=== PATIENT | female | born 1960 | race Caucasian/White ===

== ENCOUNTER 2017-11-22 12:56 | Emergency (ER) | payer OTHER, MEDICAID ==
[~2017-11-22] VITALS: Ht 167.6 cm; Wt 77.1 kg
--- NOTE | ~2017-11-22 | EKG ---
[address] [place] [address] ELECTROCARDIOGRAM REPORT Name: BRIDGET SHERMAN Room #: DEP [facility]ENTERPr[facility] [id number] Admission: 11/22/17 Attend Phys: Discharge: 11/22/17 Date of : 58 Report #: [id number] THIS REPORT FOR: //name// [facility] ED Test Date: 2017-11-22 Test Time: 13:57:05 Pat Name: BRIDGET SHERMAN Department: Room: Gender: F Law Clerk: MOOK : 1960 Requested By: Dillon Carrillo Order Number: [id number] MD: Ty Barrera Measurements Intervals [place] Rate: 68 P: 48 LA: 156 QRS: -18 QRSD: 89 T: 31 QT: 397 QTc: 423 Interpretive Statements Sinus rhythm Borderline left axis deviation Abnormal R-wave progression, early transition Probable anterolateral infarct, old No previous ECG available for comparison Electronically Signed On 11-22-2017 17:05:13 CDT by Ty Barrera [email or web address] <ELECTRONICALLY SIGNED> By: Ty Barrera MD 11/22/17 1705 D: 09/1356 135 Ty Barrera MD /THUY
[~2017-11-22 12:56] MED LIST: DIPHENHIST50 MG PO; MEDROLDOSEPACK PO; NAPROSYN500 MG PO; TIZANIDINE HCL4 MG PO
[2017-11-22] MEDS ORDERED: NORCO 10-325 T1 EACH PO (13:40)
[2017-11-22] MEDS ORDERED: CALCIUM 600 +1 EAC1 PO (13:41)
[2017-11-22] MEDS ORDERED: MS CONTIN 30 MG30 MG PO (13:42)
[2017-11-22 14:11] LABS: HEMATOCRIT 38.8 % (37.0-47.0); HEMOGLOBIN 12.8 gm/dL (12.0-15.0); MCH 26.9 pg (26.0-34.0); MCHC 32.9 g/dL (28.0-37.0); MCV 81.6 fL (80.0-100.0); PLATELET COUNT 351 thou/uL (150-400); RBC 4.75 mil/uL (4.20-5.00); RDW 19.8 % (10.5-14.5); WBC 9.3 thou/uL (4.0-11.0)
[2017-11-22 14:19] LABS: ANION GAP 9 mmol/L (7-16); BUN 12 mg/dL (7-18); CALCIUM 10.4 mg/dL (8.5-10.1); CHLORIDE 105 mmol/L (98-107); CO2 26 mmol/L (21-32); CREATININE 0.8 mg/dL (0.6-1.0); GLUCOSE 91 mg/dL (74-106); POTASSIUM 3.7 mmol/L (3.5-5.1); SODIUM 140 mmol/L (136-145)
[2017-11-22 14:27] LABS: TROPONIN-I <0.06 ng/mL (<0.06)
[2017-11-22 14:42] LABS: ABSOLUTE NEUTROPHILS 4.8 thou/uL (1.4-8.2); PLATELET ESTIMATE NORMAL
[2017-11-22 15:00] LABS: URINE BILIRUBIN NEGATIVE (Negative); URINE BLOOD TRACE (Negative); URINE CLARITY CLEAR; URINE COLOR YELLOW; URINE GLUCOSE-RANDOM* NEGATIVE (Negative); URINE KETONES NEGATIVE (Negative); URINE LEUKOCYTES-REFLEX NEGATIVE (Negative); URINE NITRITE-REFLEX NEGATIVE (Negative); URINE PROTEIN (DIPSTICK) NEGATIVE (Negative); URINE SPECIFIC GRAVITY <= 1.005 (1.005-1.035); URINE UROBILINOGEN 0.2 E.U./dl (0.2-1.0)
[2017-11-22] MEDS ORDERED: SENNA8.6 MG PO (15:23)
[2017-11-22] MEDS ORDERED: NORCO 5-325 TA1 EACH PO (15:35)
[2017-11-22 15:39] VITALS: BP 127/89
== END 2017-11-22 15:40 | disposition home or self-care (01) ==
LOC: ER 12:56
PROVIDERS: Physician Assistant
DX: K59.00 Constipation, unspecified (principal); M54.5 Low back pain; R11.10 Vomiting, unspecified; F17.210 Nicotine dependence, cigarettes, uncomplicated; J44.9 Chronic obstructive pulmonary disease, unspecified; Z88.1 Allergy status to other antibiotic agents; Z88.0 Allergy status to penicillin; Z90.710 Acquired absence of both cervix and uterus